=== PATIENT | female | born 1985 | race African-American/Black ===

== ENCOUNTER 2016-12-28 21:52 | Emergency (ER) | payer SELFPAY ==
[2016-12-28] MEDS ORDERED: Ondansetron ODT 4 MG TAB ONE (22:10)
[2016-12-28] MEDS ORDERED: Ibuprofen 800 MG TAB ONE (22:36)
== END 2016-12-28 22:53 | disposition home or self-care (01) ==
LOC: ERS 21:52
DX: J02.9 Acute pharyngitis, unspecified (principal)
CPT/HCPCS: 87081; 87430; 99284; Q0162

== ENCOUNTER 2017-02-14 10:48 | Emergency (ER) | payer SELFPAY ==
[2017-02-14 11:37] LABS: Bilirubin Negative (Negative); Blood, Urine Moderate (Negative); Glucose, Urine (Dipstick) Negative (Negative); Ketone, Urine Negative (Negative); Nitrite Negative (Negative); Protein, Urine (Dipstick) Negative (Neg-Trace)
[2017-02-14 11:40] LABS: Bacteria/HPF None Seen HPF (None Seen); Hyaline Casts/LPF 0-3 HYALINE CAST LPF (0-3 Hyaline); RBC/HPF 21-50 HPF (0-3); Squamous Epithelial 0-3 HPF (0-3); WBC/HPF 0-3 HPF (0-3)
[2017-02-14 11:57] LABS: #Basophils 0.1 thou/uL (0.0-0.2); #Eosinphils 0.1 thou/uL (0.0-0.7); #Monocytes 0.5 thou/uL (0.11-0.59); #Neutrophils 1.7 thou/uL (1.40-6.50); %Basophils 1.9 % (0.0-1.0); %Eosinophils 3.2 % (0.0-10.0); %Lymphocytes 44.8 % (21.0-51.0); %Monocytes 12.2 % (0.0-10.0); Hematocrit 37.8 % (36.0-47.0); Mean Platelet Volume 10.5 fL (7.4-10.4); Red Blood Cell (RBC) Count 5.14 mill/uL (4.20-5.40); White Blood Cell (WBC) Count 4.3 thou/uL (4.8-10.8)
[2017-02-14 12:24] LABS: Hypochromia SLIGHT = 6-15 cells (100X) (0-5/hpf); Microcytosis SLIGHT = 6-15 cells (100X) (0-5/hpf); Ovalocytes SLIGHT = 2-5 cells (100X) (0-1/hpf); Polychromasia SLIGHT = 2-3 cells (100X) (0-2/hpf); Schistocytes SLIGHT = 2-5 cells (100X) (0-1/hpf); Target Cells SLIGHT = 2-5 cells (100X) (0-1/hpf)
== END 2017-02-14 12:32 | disposition home or self-care (01) ==
LOC: ERS 10:48
DX: N94.6 Dysmenorrhea, unspecified (principal)
CPT/HCPCS: 36415; 81003; 81015; 81025; 85025; 99284

== ENCOUNTER 2017-03-25 18:40 | Emergency (ER) | payer SELFPAY ==
[2017-03-25] MEDS ORDERED: Acetaminophen 500 MG TAB ONE (19:08)
== END 2017-03-25 21:41 | disposition home or self-care (01) ==
LOC: ERS 18:40
DX: J10.1 Influenza due to other identified influenza virus with other respiratory manifestations (principal)
CPT/HCPCS: 87804; 99283

== ENCOUNTER 2017-05-17 10:01 | Emergency (ER) | payer SELFPAY ==
[2017-05-17 11:05] LABS: #Basophils 0.1 thou/uL (0.0-0.2); #Lymphocytes 1.7 thou/uL (1.20-3.40); #Monocytes 0.8 thou/uL (0.11-0.59); #Neutrophils 2.8 thou/uL (1.40-6.50); %Basophils 1.2 % (0.0-1.0); %Eosinophils 0.7 % (0.0-10.0); %Lymphocytes 31.2 % (21.0-51.0); %Monocytes 14.5 % (0.0-10.0); %Neutrophils 52.4 % (42.0-75.0); Hemoglobin 10.9 g/dL (12.0-16.0); Mean Corpuscular HGB CONC 31.5 g/dL (32.0-36.0); Mean Corpuscular Hemoglobin 22.2 pg (27.0-31.0); Mean Corpuscular Volume 70.4 fl (81.0-99.0); Mean Platelet Volume 10.3 fL (7.4-10.4); Platelet Count 230 thou/uL (130-400); RBC Distribution Width 13.7 % (11.5-14.5); Red Blood Cell (RBC) Count 4.93 mill/uL (4.20-5.40); White Blood Cell (WBC) Count 5.4 thou/uL (4.8-10.8)
[2017-05-17 11:08] LABS: Bilirubin Negative (Negative); Blood, Urine Negative (Negative); Glucose, Urine (Dipstick) Negative (Negative); Leukocyte Negative (Negative); Nitrite Negative (Negative); Protein, Urine (Dipstick) Negative (Neg-Trace); Specific Gravity, Urine 1.015 (1.005-1.030); Urobilinogen 0.2 mg/dL (0.2-1.0); pH, Urine 6.5 (5.0-9.0)
[2017-05-17 11:09] LABS: Clarity CLEAR (Clear)
[2017-05-17 11:20] LABS: ALT (SGPT) 10 U/L (8-55); AST (SGOT) 14 U/L (5-34); Alkaline Phosphatase 37 U/L (40-150); Anion Gap 9 mmol/L (10-20); BUN (Urea Nitrogen) 10 mg/dL (7.0-18.7); Bilirubin, Total 0.4 mg/dL (0.2-1.2); Calc. Creatinine Clearance 0 mL/min (70-130); Carbon Dioxide 24 mmol/L (22-29); Chloride 105 mmol/L (98-107); Estimated GFR-MDRD Greater than 90; Glucose 81 mg/dL (70-105); Lipase 25 U/L (8-78); Potassium 3.6 mmol/L (3.5-5.1); Sodium 134 mmol/L (136-145)
--- NOTE | 2017-05-17 11:41 | ULT ---
PELVIC ULTRASOUND: DATE: 05/17/17. HISTORY: Pelvic pain. FINDINGS: The uterus measures 8.4 cm x 7.2 cm x 5.9 cm. There is a fluid collection in the endometrial canal w hich contains both a pole and yolk sac with single intrauterine gestation present. Cardiac Dop pler does demonstrate heart tones with a heart rate of 119 b.p.m. While heart rate is lo w, this is likely attributable to very early intrauterine gestational age and small pole. [place] n-lump length measures 0.55 cm, which his consistent with Mean gestational age by ultrasound of 6 wee ks and 2 days. There are 2 hypoechoic areas in a subchorionic location with complicated curvilinear fluid collection measuring 3.1 cm x 0.6 cm and additional hypoechoic area in the subchorionic location measuring 1.7 cm x 1.5 cm. The ovaries demonstrate a normal sonographic appearance for transabdominal imaging with the right ova ry measuring 3 cm x 2.1 cm x 1.9 cm and the left ovary measuring 2.4 cm x 1.4 cm x 1.7 cm. Doppler e valuation of each ovary with spectral analysis and color flow evaluation does demonstrate arterial fl ow. The fallopian tubes are not visualized. A small amount of free fluid is seen in the cul-de-sac. IMPRESSION: 1. Single intrauterine gestation with heart tones documented. heart tones are diminishe d, but this is probably related to the early intrauterine gestational age. There is evidence of subc horionic hemorrhage with 2 separate areas of subchorionic hemorrhage visualized as described above. 2. Gestational age by measurement of the crown-rump length is 6 weeks and 2 days. 3. Small amount of free fluid in the cul-de-sac. 4. Continued short interval followup exam is recommended due to the prominent areas of subarachnoid hemorrhage. MORTGAGE CLOSER consultation may be helpful as well. 5. The above findings were discussed with Dr. Hastings in the emergency department on 05/17/16 at 1124 hours. CODE CR POS: ELLIE
[2017-05-17 11:48] LABS: Hypochromia SLIGHT = 6-15 cells (100X) (0-5/hpf); MDiff Complete? YES; Microcytosis SLIGHT = 6-15 cells (100X) (0-5/hpf)
[2017-05-20 14:35] LABS: Chlamydia by PCR Not Detected (NotDetected); GC by PCR Not Detected (NotDetected)
== END 2017-05-17 11:52 | disposition home or self-care (01) ==
LOC: ERS 10:01
DX: O99.89 Other specified diseases and conditions complicating pregnancy, childbirth and the puerperium (principal); R10.13 Epigastric pain; Z3A.01 Less than 8 weeks gestation of pregnancy
CPT/HCPCS: 36415; 76856; 80053; 81003; 83690; 84702; 85025; 87480; 87491; 87510; 87591; 87660; 93976

== ENCOUNTER 2017-06-01 14:30 | Emergency (ER) | payer OTHER, SELFPAY ==
[2017-06-01 14:58] LABS: Hemoglobin 11.1 g/dL (12.0-16.0); Mean Corpuscular HGB CONC 32.6 g/dL (32.0-36.0); Mean Corpuscular Hemoglobin 22.9 pg (27.0-31.0); Mean Corpuscular Volume 70.2 fl (81.0-99.0); Mean Platelet Volume 10.1 fL (7.4-10.4); Platelet Count 247 thou/uL (130-400); RBC Distribution Width 13.6 % (11.5-14.5); Red Blood Cell (RBC) Count 4.87 mill/uL (4.20-5.40); White Blood Cell (WBC) Count 5.4 thou/uL (4.8-10.8)
[2017-06-01 15:00] LABS: Bilirubin Negative (Negative); Blood, Urine Negative (Negative); Clarity CLEAR (Clear); Glucose, Urine (Dipstick) Negative (Negative); Leukocyte Small (Negative); Nitrite Negative (Negative); Protein, Urine (Dipstick) Negative (Neg-Trace); Specific Gravity, Urine 1.024 (1.002-1.036)
[2017-06-01 15:01] LABS: Bacteria/HPF None Seen HPF (None Seen); Hyaline Casts/LPF 0-3 HYALINE CAST LPF (0-3 Hyaline); Pathc Cast-AUWi Flag 0.27 (0-2.49); RBC/HPF 0-3 HPF (0-3); WBC/HPF 0-3 HPF (0-3)
[2017-06-01 15:02] LABS: Pregnancy Test - Urine (BHCG) POSITIVE (Negative); Pregu Control Background? CLEAR/WHITE (CLR/WHITE); Pregu Control Bar Appear? YES (CONTROL BAR); Specific Gravity 1.024 (1.002-1.036)
[2017-06-01 15:14] LABS: ALT (SGPT) 8 U/L (8-55); AST (SGOT) 16 U/L (5-34); Alkaline Phosphatase 43 U/L (40-150); Anion Gap 9 mmol/L (10-20); BUN (Urea Nitrogen) 10 mg/dL (7.0-18.7); Bilirubin, Total Less than 0.2 mg/dL (0.2-1.2); Calc. Creatinine Clearance 0 mL/min (70-130); Calcium 8.8 mg/dL (7.8-10.44); Carbon Dioxide 24 mmol/L (22-29); Chloride 104 mmol/L (98-107); Estimated GFR-MDRD Greater than 90; Globulin 3.1 g/dL (2.4-3.5); Glucose 75 mg/dL (70-105); Lipase 36 U/L (8-78); Potassium 3.8 mmol/L (3.5-5.1); Protein, Total 7.1 g/dL (6.0-8.3); Sodium 133 mmol/L (136-145)
[2017-06-01 15:22] LABS: Eosinophils 2 % (0-10); Hypochromia SLIGHT = 6-15 cells (100X) (0-5/hpf); Lymphocytes 35 % (21-51); MDiff Complete? YES; Microcytosis MODERATE=15-30 cells (100X) (0-5/hpf); Monocytes 9 % (0-10); Neutrophil 54 % (42-75); Polychromasia SLIGHT = 2-3 cells (100X) (0-2/hpf)
--- NOTE | 2017-06-01 19:19 | ULT ---
TRANSVAGINAL AND PELVIC ULTRASOUND 06/01/17 HISTORY: Pelvic pain. FINDINGS: A single live intrauterine gestation with measurements corresponding to an estimated gestational age of 9 weeks, 2 days and FAB at 01/02/18. The crown-rump length measures 2.19 cm. Gestational sac diameter of 4.13 cm and yolk sac 0.21 cm. The heart rate measures 169 beats per minute. There is a hypoechoic area adjacent to the gestation al sac on the right side suspicious for a subchorionic hemorrhage. The ovaries are not visualized. No free fluid is seen in the cul-de-sac. IMPRESSION: 1. Single live intrauterine gestation of 9 weeks, 2 days estimated gestational age and FAB at . 2. Questionable small amount of subchorionic hemorrhage. POS: [facility]
== END 2017-06-01 16:52 ==
LOC: ERS 14:30
DX: O99.89 Other specified diseases and conditions complicating pregnancy, childbirth and the puerperium (principal); R30.0 Dysuria; R10.9 Unspecified abdominal pain; Z3A.09 9 weeks gestation of pregnancy
CPT/HCPCS: 36415; 76815; 80053; 81003; 81015; 81025; 83690; 85025; 87086

== ENCOUNTER 2017-07-05 07:22 | Emergency (ER) | payer MEDICAID, OTHER, SELFPAY ==
[2017-07-05 08:12] LABS: Bilirubin Negative (Negative); Blood, Urine Negative (Negative); Clarity CLOUDY (Clear); Glucose, Urine (Dipstick) Negative (Negative); Leukocyte Small (Negative); Nitrite Negative (Negative); Protein, Urine (Dipstick) Trace mg/dL (Neg-Trace); Specific Gravity, Urine 1.024 (1.002-1.036)
[2017-07-05 08:15] LABS: Bacteria/HPF None Seen HPF (None Seen); Hyaline Casts/LPF 0-3 HYALINE CAST LPF (0-3 Hyaline); Pathc Cast-AUWi Flag 0.14 (0-2.49); RBC/HPF 0-3 HPF (0-3); Squamous Epithelial 0-3 HPF (0-3); WBC/HPF 0-3 HPF (0-3)
[2017-07-05 08:28] LABS: #Eosinphils 0.1 thou/uL (0.0-0.7); #Lymphocytes 1.2 thou/uL (1.20-3.40); #Monocytes 0.5 thou/uL (0.11-0.59); #Neutrophils 3.6 thou/uL (1.40-6.50); %Basophils 0.6 % (0.0-1.0); %Eosinophils 1.2 % (0.0-10.0); %Lymphocytes 22.5 % (21.0-51.0); %Monocytes 8.8 % (0.0-10.0); Hemoglobin 10.6 g/dL (12.0-16.0); Mean Corpuscular HGB CONC 32.2 g/dL (32.0-36.0); Mean Corpuscular Hemoglobin 22.6 pg (27.0-31.0); Mean Corpuscular Volume 70.2 fl (81.0-99.0); Mean Platelet Volume 10.7 fL (7.4-10.4); Platelet Count 198 thou/uL (130-400); RBC Distribution Width 13.7 % (11.5-14.5); Red Blood Cell (RBC) Count 4.69 mill/uL (4.20-5.40); White Blood Cell (WBC) Count 5.3 thou/uL (4.8-10.8)
[2017-07-05 08:52] LABS: ALT (SGPT) 8 U/L (8-55); AST (SGOT) 14 U/L (5-34); Albumin 3.5 g/dL (3.5-5.0); Alkaline Phosphatase 36 U/L (40-150); Anion Gap 10 mmol/L (10-20); BUN (Urea Nitrogen) 11 mg/dL (7.0-18.7); Bilirubin, Total 0.2 mg/dL (0.2-1.2); Calc. Creatinine Clearance 0 mL/min (70-130); Calcium 8.6 mg/dL (7.8-10.44); Carbon Dioxide 23 mmol/L (22-29); Chloride 107 mmol/L (98-107); Estimated GFR-MDRD Greater than 90; Globulin 2.9 g/dL (2.4-3.5); Glucose 85 mg/dL (70-105); Protein, Total 6.4 g/dL (6.0-8.3); Sodium 136 mmol/L (136-145)
[2017-07-05 09:30] LABS: Lipase 16 U/L (8-78)
--- NOTE | 2017-07-05 11:24 | ULT ---
ULTRASOUND RETROPERITONEUM COMPLETE: (RENAL) DATE: 07-05-17 HISTORY: 31-year-old female in second trimester of gestation presents with right flank pain and right lower quadrant pain. FINDINGS: The right kidney measures 10.5 x 5 x 5.5 cm. The left kidney measures 10 x 6 x 6 cm. Both kidneys h ave normal cortical thickness and normal cortical echogenicity. There is no hydronephrosis. Cursory images of the urinary bladder demonstrate no gross abnormality. Pre void urinary bladder volume 65 m l. Post void urinary bladder volume 35 ml. IMPRESSION: 1. No hydronephrosis. 2. Incomplete bladder voiding. john POS: ELLIE
--- NOTE | 2017-07-05 11:30 | ULT ---
ULTRASOUND OBSTETRICAL COMPLETE: DATE: 07-05-17 HISTORY: 31-year-old female presents with right flank pain and right lower quadrant abdominal pain. FINDINGS: number: Kumar lie: Cephalic Maternal cervix: 3 cm in length, closed Placenta: Anterior. No placenta previa or abruption. Amniotic fluid volume: Subjectively normal heart rate: 153 bpm The following anatomy is visualized, with no evidence of anomalies: Head, four chamber heart, stomach, cord insertion, upper limbs and lower limbs. biometry: Head circumference (HC): 9.7 cm 14 w 3 d Biparietal diameter (BPD): 2.4 cm 14 w 0 d Abdominal circumference (AC): 8.1 cm 14 w 3 d Femur length (FL): 1.2 cm 13 w 3 d Average ultrasound age (AUA): 14 w 0 d Estimated date of delivery (FAB): 01-03-18 Estimated weight (EFW): Not calculated. IMPRESSION: 1. Live early second trimester intrauterine gestation. 2. Estimated gestational age of 14 weeks, 0 days. 3. Vertex lie. 4. No evidence of complications. URIEL Freitas POS: ELLIE
== END 2017-07-05 11:00 | disposition home or self-care (01) ==
LOC: ERS 07:22
DX: O99.89 Other specified diseases and conditions complicating pregnancy, childbirth and the puerperium (principal); R10.31 Right lower quadrant pain; Z3A.15 15 weeks gestation of pregnancy
CPT/HCPCS: 76770; 76815; 80053; 81003; 81015; 83690; 85025

== ENCOUNTER 2017-08-11 15:56 | Day surgery (SDC) | payer OTHER ==
[2017-08-11 16:51] VITALS: BMI 26.7
--- NOTE | 2017-08-12 05:36 | SS ---
OB TRIAGE NOTE DATE OF EVALUATION: 08/11/2017 REGULAR PHYSICIAN: Link Bermeo M.D. EVALUATING PHYSICIAN: Andrew Thomas M.D. CHIEF COMPLAINT: "Vaginal discharge, right-sided pulling." HISTORY OF PRESENT ILLNESS: Ms. Escalera is a 31-year-old black G4, P3-0-0-3 with a reported estimated date of confinement of 01/06/2018 who presents complaining of vaginal discharge at home and occasiona l pulling on her right side. She denies fever, chills, nausea, vomiting, vaginal bleeding or leakage of fluid. She currently is being seen at [facility] and is scheduled to see Dr. Bermeo on 8. PAST OBSTETRICAL HISTORY: Three uncomplicated vaginal deliveries at term. PAST MEDICAL HISTORY: None. PAST SURGICAL HISTORY: None. ALLERGIES: No known allergies. SOCIAL HISTORY: Denies tobacco, alcohol, or drug use. FAMILY HISTORY: Denies pelvic malignancy. PHYSICAL EXAMINATION: VITAL SIGNS: Stable. She is afebrile. ABDOMEN: Soft and nontender. There is no guarding or rebound. Fundal height is one fingerbreadth b elow the umbilicus. On pelvic exam, sterile speculum exam shows the cervix to be long and closed. T here is no vaginal bleeding. There is a copious discharge. heart tones are present. No uteri ne activity is seen on the tocodynamometer. MEDICAL RECORDS MANAGER-3 testing returns consistent with a Gardnerella vaginitis. ASSESSMENT: 1. An 18-week intrauterine . 2. Bacterial vaginosis. PLAN: At this time, the findings have been related to the patient. I have given a prescription for Flagyl 250 mg 1 tablet p.o. t.i.d. for a week. She is instructed to complete the prescription and wa s instructed to follow up with her appointment with Dr. Bermeo next week. Complete postoperative inst ructions were given. She voices understanding of her discharge instructions.
== END 2017-08-11 19:40 | disposition home or self-care (01) ==
LOC: ERS 15:56 → L&D/OP 15:56
PROVIDERS: ATTEND Family Medicine
DX: O23.592 Infection of other part of genital tract in pregnancy, second trimester (principal); N76.0 Acute vaginitis; B96.89 Other specified bacterial agents as the cause of diseases classified elsewhere; Z3A.18 18 weeks gestation of pregnancy
CPT/HCPCS: 87480; 87510; 87660

== ENCOUNTER 2017-10-15 20:42 | Day surgery (SDC) | payer OTHER ==
[2017-10-15 21:25] VITALS: BP 111/68; TEMP 99.1; BMI 29.5
[2017-10-15] MEDS: Metoclopramide HCl 10 MG/2 ML VIAL IVP SCH ×2 (22:02→22:37)
[2017-10-15] MEDS: diphenhydrAMINE 50 MG/ML VIAL IVP SCH ×2 (22:05→23:02)
[2017-10-15] MEDS ORDERED: Lactated Ringer's 1,000 ML IV SCH (22:15)
--- NOTE | 2017-10-16 01:02 | PRG ---
DATE OF SERVICE: 10/15/2017 PRIMARY RETIREMENT MANAGER: Dr. Link Bermeo. CHIEF COMPLAINT: Headache. HISTORY OF PRESENT ILLNESS: The patient is a 31-year-old, female with an intrauterine at 28 weeks and a day, who is presenting with a 2-day history of headache. She reports a history of migraines and this headache feels like she is having another migraine. She has attempted Tylenol at home earlier today without success. Patient denies any other complications with this . She denies fever, illness, fall, chest pain, shortness of breath, nausea, vomiting, diarrhea, or constipation. She denies skin rashes, hip problems, knee problems, muscle weakness, vaginal bleeding, leakage of fluid , urinary urgency. PAST MEDICAL HISTORY: Negative. PAST SURGICAL HISTORY: Negative. ALLERGIES: No known drug allergies. MEDICATIONS: vitamins. SOCIAL HISTORY: Denies drug, alcohol, or tobacco use. OB LABORATORY DATA: Unavailable at the time of dictation. REVIEW OF SYSTEMS: Per HPI. PHYSICAL EXAMINATION: VITAL SIGNS: Blood pressure is 104/52, heart rate is 72, respiratory rate 18, temperature 99.1. GENERAL: Patient appears to be very uncomfortable. She is alert and oriented, cooperative and pleasant to interact with. HEENT: Head: Normocephalic, atraumatic. LUNGS: Clear to auscultation bilaterally. HEART: Regular rate and rhythm. ABDOMEN: Soft, nontender. EXTREMITIES: Nontender, nonedematous. GENITOURINARY: Has been deferred. heart tracing performed and fetus is noted to have a baseline in the 130s to 140s with moderate long-term variability. Fetus has periodic accelerations and had a period of deceleration that came down to the 90s for less than 10 seconds and then recovered in the 120s and then came down again with what appears for a short period of marked variability coming down to the 90s and up to the 140s and then recovering spontaneously and paroxysmal back to the baseline in the 130s to 140s with continued moderate long-term variability, monitoring continued for approximately an hour and a half following this event with no other concerning features. The tocometer is not showing any contractions. During this stay, patient has been given a liter of IV fluids and a regimen of 10 mg of IV Reglan q.30 minutes and Benadryl 25 mg IV q.1 hour for a total of 3 doses of Reglan and 1 dose of Benadryl at which time patient reports that her headache has resolved. ASSESSMENT AND PLAN: The patient is a 31-year-old female with an intrauterine at 28 weeks and what appeared to be a migraine headache resolved with Benadryl and Reglan. Fetus head have a short period of an explainable increased marked variability for a couple of minutes, but since has had a category 1 tracing. We have plans to monitor her for about another 30 minutes for a total of 2 hours post this event and anticipate discharge home. The patient has an appointment with her primary OB, Dr. Bermeo on Monday. MARCELLA
== END 2017-10-15 23:50 | disposition home or self-care (01) ==
LOC: ERS 20:42 → L&D/OP 20:48
PROVIDERS: ATTEND Family Medicine
DX: O99.89 Other specified diseases and conditions complicating pregnancy, childbirth and the puerperium (principal); R51 Headache; Z3A.28 28 weeks gestation of pregnancy
CPT/HCPCS: J1200; J2765

== ENCOUNTER 2017-10-28 05:26 | Day surgery (SDC) | payer OTHER ==
[2017-10-28 05:56] VITALS: BP 108/66; TEMP 98.4; BMI 29.8
[2017-10-28 07:20] LABS: Bilirubin Negative (Negative); Blood, Urine Moderate (Negative); Clarity CLEAR (Clear); Glucose, Urine (Dipstick) Negative (Negative); Leukocyte Moderate (Negative); Nitrite Negative (Negative); Protein, Urine (Dipstick) Negative (Neg-Trace); Specific Gravity, Urine 1.007 (1.002-1.036)
[2017-10-28 07:21] LABS: Bacteria/HPF None Seen HPF (None Seen); Hyaline Casts/LPF 0-3 HYALINE CAST LPF (0-3 Hyaline); Pathc Cast-AUWi Flag 0.14 (0-2.49); RBC/HPF 0-3 HPF (0-3); Squamous Epithelial 0-3 HPF (0-3); WBC/HPF 0-3 HPF (0-3)
--- NOTE | 2017-10-28 08:34 | ER ---
DATE OF ENCOUNTER: 10/28/2017 OB ER ENCOUNTER PRIMARY OB: Dr. Link Bermeo. CHIEF COMPLAINT: Vaginal spotting. HISTORY OF PRESENT ILLNESS: The patient is a 31-year-old G4, P3 female with an intrauterine at 30 weeks and 3 days, who presents today to Labor and Delivery after waking up to get ready for work and noticed that she had some vaginal spotting. The patient also reports that she has been having tightening in her back for the last few days. She is unable to determine how often she feels them, but thinks it happens more than a couple times in an hour. She denies any recent intercourse. She denies fever, fall, headache, chest pain, shortness of breath, cough, nausea, vomiting, diarrhea, constipation. She denies any new rashes. She denies change in her discharge other than the spotting this morning. She denies urinary urgency or frequency outside what she has been experiencing in . She denies hip pain, knee pain, muscle weakness. PAST MEDICAL HISTORY: Negative. PAST SURGICAL HISTORY: Negative. ALLERGIES: No known drug allergies. MEDICATIONS: vitamins. SOCIAL HISTORY: Denies drug, alcohol, or tobacco use. OB LABS: Unavailable at time of dictation. REVIEW OF SYSTEMS: Per HPI. PHYSICAL EXAMINATION: VITAL SIGNS: Blood pressure is 108/66, heart rate of 72, respiratory rate of 18 , temperature 98.4. GENERAL: She appears to be in no acute distress. She is alert and oriented, cooperative and pleasant to interact with. HEAD: Normocephalic, atraumatic. LUNGS: Clear to auscultation bilaterally. HEART: Regular rate and rhythm. ABDOMEN: Soft. She has a little bit of tenderness to the right side with deviation of the uterus to the left. EXTREMITIES: Nontender, nonedematous. She has no SI joint tenderness to palpation or paravertebral tenderness. GENITOURINARY EXAM: Vulva is without masses, lesions, or erythema. There is no bleeding seen at the perineum. With speculum exam, vagina is moist. There is a yellow discharge. Upon visualization of the cervix, there is no bleeding; however, with the cervix rubbing on the end of the speculum, it did start to bleed a small amount. CASE FOLDER-III, GC, chlamydia were collected. Cervical exam is closed and thick and firm with no presentation palpable through the vaginal wall. heart tracing performed. Baseline is noted to be in the 140s with moderate long-term variability, positive 15 x 15 accelerations, no decelerations , the duration has been about 1 hour and no contractions seen on the monitor. CASE FOLDER-III, UA, GC, and chlamydia are all pending at time of dictation. ASSESSMENT AND PLAN: The patient is a 31-year-old female with an intrauterine at 30 weeks and 3 days, presenting with some isolated spotting this morning, when she got up to get ready for work. There is no evidence of labor. The patient does have a yellow discharge vaginally, unsure whether this is just staining from the previous spotting the patient described or if it signs of another infection. Patient is aware that her GC and chlamydia may come back in a couple days. The CASE FOLDER-III and UA should be available later this morning. Pending those results, patient will be given treatment as indicated likely when they become available. Her provider will become Dr. Talamantes of the on-coming OB/ BOIL[facility]. Addendum: VP3 + for BV. script for metronidazole provided. MTDD
--- NOTE | 2017-10-28 08:39 | PDOC.EVN ---
Event Note - Event Note Event Note: Product Development Coordinator note: Assumed care at 0800: Lab check: PRESSURE TANK OPERATOR 3 BV...Fl;agyl for outpatient Patient to follow up GC/Chl result with Jean-Claude Thrasher was closed per report
[2017-10-29 20:00] LABS: Chlamydia by PCR Not Detected (NotDetected); GC by PCR Not Detected (NotDetected)
== END 2017-10-28 08:55 | disposition home or self-care (01) ==
LOC: L&D/OP 05:26
PROVIDERS: ATTEND Family Medicine
DX: O26.853 Spotting complicating pregnancy, third trimester (principal); O99.89 Other specified diseases and conditions complicating pregnancy, childbirth and the puerperium; M54.9 Dorsalgia, unspecified; O23.593 Infection of other part of genital tract in pregnancy, third trimester; B96.89 Other specified bacterial agents as the cause of diseases classified elsewhere; Z3A.30 30 weeks gestation of pregnancy; Z79.899 Other long term (current) drug therapy
CPT/HCPCS: 59025; 81001; 87480; 87491; 87510; 87591; 87660; 99284

== ENCOUNTER 2017-11-15 08:32 | Day surgery (SDC) | payer OTHER ==
[2017-11-15 09:23] VITALS: BP 108/60; TEMP 97.8; BMI 30.7
[2017-11-15 10:17] LABS: Bilirubin Negative (Negative); Blood, Urine Negative (Negative); Clarity CLEAR (Clear); Glucose, Urine (Dipstick) Negative (Negative); Leukocyte Trace (Negative); Nitrite Negative (Negative); Protein, Urine (Dipstick) Negative (Neg-Trace); Specific Gravity, Urine 1.006 (1.002-1.036)
[2017-11-15 10:21] LABS: Bacteria/HPF None Seen HPF (None Seen); Hyaline Casts/LPF 0-3 HYALINE CAST LPF (0-3 Hyaline); RBC/HPF 0-3 HPF (0-3); Squamous Epithelial 0-3 HPF (0-3); WBC/HPF 0-3 HPF (0-3)
--- NOTE | 2017-11-15 12:19 | PRG ---
DATE OF SERVICE: 11/15/2017 OB ER ENCOUNTER PRIMARY OB: Dr. Doss at [facility]. CHIEF COMPLAINT: Pelvic and rectal pressure. HISTORY OF PRESENT ILLNESS: The patient is a 32-year-old G4, P3 female with an intrauterine pregnanc y at 32 weeks and 4 days, who presents to Labor and Delivery with a 2-day history of vaginal pressure that she feels rectally sometimes. The patient was just worried for her baby and came for evaluatio n. The patient has 3 children at home, school age and works. She denies any intercourse in the last several days. She denies urinary urgency or frequency. She does report she recently was diagnosed with bacterial vaginosis about 3 weeks ago and had completed her antibiotics. The patient has a hist ory of 1 delivery at about a month early from her due date. She denies any other complicatio ns with this . The patient denies any recent illness, fever, fall, headache, chest pain, sh ortness of breath, nausea, vomiting, diarrhea, constipation, hip problems, knee problems, muscle weak ness, vaginal bleeding, leakage of fluid or change in discharge, urinary urgency or frequency. PAST MEDICAL HISTORY: Negative. PAST SURGICAL HISTORY: Negative. ALLERGIES: No known drug allergies. MEDICATIONS: vitamins. SOCIAL HISTORY: Denies drug, alcohol or tobacco use. OB LABS: Unavailable at the time of dictation. REVIEW OF SYSTEMS: Per HPI. PHYSICAL EXAMINATION: VITAL SIGNS: Blood pressure 108/60, heart rate of 78, respiratory rate of 16, temperature 98.8. GENERAL: She appears to be in no acute distress. She is alert and oriented, cooperative and pleasan t to interact with. HEENT: Normocephalic, atraumatic. CHEST: Clear to auscultation bilaterally. HEART: Regular rate and rhythm. ABDOMEN: Soft, gravid, nontender. EXTREMITIES: Nontender and nonedematous. PELVIC: Vulva is without masses, lesions or erythema. Vagina is moist. Cervix is visibly closed. There is minimal discharge in the vaginal vault. On digital exam, cervix is closed. There is what f eels like a head presenting through the vaginal wall. heart tracing performed for vaginal and rectal pressure. Baseline is noted to be in the 130s w ith moderate long-term variability, positive 15 x 15 accelerations, no decelerations. No contraction s seen on the tocometer. VP3 is negative for Trichomonas, positive for bacterial vaginosis or Gardnerella and negative for [place] dida. Urinalysis is negative for nitrites, glucose, blood, bacteria, white blood cells, red blood cells. S he has trace leukocyte esterase. ASSESSMENT AND PLAN: The patient is a 32-year-old G4, P3 female presenting with pelvic pressure and rectal pressure. There is no evidence of labor at this time. She does have recurrent bacterial vagi nosis, which we have given a prescription for metronidazole 500 mg b.i.d. number 14 and also I have e ncouraged an elrz-fuk-[id number] probiotic, specifically designed for reapproximating the vaginal canal. I have encouraged her to start this as soon as she stops her antibiotics and to continue until her . Fetus has a category 1 tracing. The patient has followup with her primary OB, Dr. Doss tomorrow.
== END 2017-11-15 11:27 | disposition home health service, planned readmission (86) ==
LOC: L&D/OP 08:32
PROVIDERS: ATTEND Obstetrics & Gynecology
DX: O99.89 Other specified diseases and conditions complicating pregnancy, childbirth and the puerperium (principal); R10.2 Pelvic and perineal pain; Z3A.32 32 weeks gestation of pregnancy
CPT/HCPCS: 81001; 87480; 87510; 87660; 99284

== ENCOUNTER 2017-12-13 19:17 | Day surgery (SDC) | payer OTHER ==
[2017-12-13 19:51] VITALS: BP 108/67; TEMP 98.9; BMI 30.9
--- NOTE | 2017-12-13 20:45 | HP ---
TIME OF EVALUATION: 20:10 Location: Labor and Delivery triage, B. REASON FOR EVALUATION: Pelvic pressure at 36 weeks' gestation. This is a patient of Dr. Doss. In brief, this patient has a full handwritten H&P in the physical chart and this dictation is to supp lement. HISTORY OF PRESENT ILLNESS: This is a 32-year-old -Israeli G4, P3 with a history of 3 prior vaginal deliveries with the last one being on 06/07/2012. She is here for pelvic pressure and vagina l pressure, but no leakage of fluid, no vaginal bleeding and no contractions. She has good mov ement. She has increased perirectal pressure as well, but no rectal bleeding and she has had recent constipation, but it is now relieved. She denies any other issues. REVIEW OF SYSTEMS: Complete review of systems was checked and is otherwise negative as unless specif ied in the HPI. PAST MEDICAL HISTORY: She has a history of migraines, but does not require medications. PAST SURGICAL HISTORY: None. ALLERGIES: None. OB HISTORY: She has had 3 prior vaginal births. PHYSICAL EXAMINATION: VITAL SIGNS: Blood pressure 108/67, pulse is 78 and O2 sat is 99%. GENERAL: She is in no acute distress. GENITOURINARY: Uterus is soft and nontender. I performed an external vaginal/vulvar examination and I found two small external pedunculated condyloma each one about 0.5 cm; one is at 7 o'clock and one is at 4 o'clock position. I explained this to the patient's and patient was given detailed informat ion on likely HPV origin. Also performed a perirectal examination without doing a digital rectal exa m. This was by visualization alone. I see a small external less than 1 cm external hemorrhoid that is nontender to palpation. With clean gloves, I checked her cervix and cervix is fingertip/20 percen t effaced/ -2 station/cephalic by Ventura's maneuver/no evidence of rupture. On monitor, heart tones are in the 140s-150s with no contractions on tocodynamometer. ASSESSMENT: 1. This is a 36-week with likely discomforts of in a multigravida. There is no evidence of labor. She also has a chest tube incidentally noted small condyloma at the exter nal vaginal area; one is at 7 o'clock and one is at 4 o'clock. 2. heart tones are reactive. PLAN: 1. No evidence of . 2. I provided detailed information on likely condyloma and gave her information that these may likel y resolve and if not, they can be removed in the office or destroyed with medical therapy. 3. I gave her information that this is not an indication for as they are very small and di d not obstruct labor. 4. No acute needs at this time.
== END 2017-12-13 20:30 | disposition home health service (06) ==
LOC: L&D/OP 19:17
PROVIDERS: ATTEND Obstetrics & Gynecology
DX: O99.89 Other specified diseases and conditions complicating pregnancy, childbirth and the puerperium (principal); R10.2 Pelvic and perineal pain; Z3A.36 36 weeks gestation of pregnancy
CPT/HCPCS: 99282

== ENCOUNTER 2017-12-22 00:26 | Day surgery (SDC) | payer OTHER ==
[2017-12-22 01:15] VITALS: BP 128/66; TEMP 98.9; BMI 31.4
--- NOTE | 2017-12-22 05:01 | PRG ---
OB ER ENCOUNTER DATE OF SERVICE: 12/22/2017 PRIMARY CAR CHANGER: Dr. Doss at [facility]. CHIEF COMPLAINT: Abdominal pains. HISTORY OF PRESENT ILLNESS: The patient is a 32-year-old female with intrauterine at 37 weeks who is presenting today with a 1 day history of abdominal pains. The patient reports contr actions about frequently about every 5-6 minutes that has been going on since last night. The patien t denies vaginal bleeding or leakage of fluid. Denies any recent illness, fever, fall, headache, jonathon st pain, shortness of breath. She denies nausea, vomiting, diarrhea, constipation. Denies rash. Sh e does report lower back pains. PAST MEDICAL HISTORY: Anemia and migraine headaches. PAST SURGICAL HISTORY: Negative. OB HISTORY: The patient had 3 term vaginal deliveries. ALLERGIES: No known drug allergies. MEDICATIONS: vitamins. SOCIAL HISTORY: Denies drug, alcohol or tobacco use. OB LABS: Blood type is O positive, antibody screen is negative. RPR is nonreactive in the first tri mester. HIV is nonreactive in first trimester. Hepatitis B surface antigen is negative. She is rub rené immune. One hour Glucola is 84. GC and chlamydia are negative. REVIEW OF SYSTEMS: Per HPI. PHYSICAL EXAMINATION: VITAL SIGNS: Blood pressure 128/66, heart rate of 83, respiratory rate of 20, satting 99% on room ai r, temperature 98.8. GENERAL: She appears to be in no acute distress. She is alert and oriented, cooperative and pleasan t to interact with. HEENT: Normocephalic, atraumatic. LUNGS: Clear to auscultation bilaterally. HEART: Regular rate and rhythm. ABDOMEN: Soft, gravid, nontender. EXTREMITIES: Nontender and nonedematous. GENITOURINARY: Per nursing staff is 1, 20% effaced, and -2 station, unchanged after 2 hours of obser vation. heart tracing performed for abdominal pain in . Baseline is noted to be in the 120s w ith moderate long-term variability, positive 15 x 15 accelerations, no decelerations. Tocometer show s contractions every 2-4 minutes, though not intense. ASSESSMENT AND PLAN: The patient is a 32-year-old female with an intrauterine at 37 weeks and 6 days, having term contractions and possible latent labor. The patient's cervix is very u nfavorable at this time. Fetus is reactive with a category 1 tracing. The patient has been discharg ed to home with instructions to follow up with Dr. Doss tomorrow in her office. The patient will b e making a phone call to try to get seen later in the day. She has been given term labor precautions and instructions to return as necessary.
== END 2017-12-22 03:10 | disposition home or self-care (01) ==
LOC: L&D/OP 00:26
PROVIDERS: ATTEND Obstetrics & Gynecology
DX: O47.1 False labor at or after 37 completed weeks of gestation (principal); Z3A.37 37 weeks gestation of pregnancy
CPT/HCPCS: 99283

== ENCOUNTER 2017-12-31 16:04 | Day surgery (SDC) | payer OTHER ==
[2017-12-31 17:01] VITALS: BMI 31.1
--- NOTE | 2017-12-31 17:12 | PDOC.FPROB ---
FMR OB H&P: HPI - History of Present Illness Chief Complaint: Contractions Indentification: 32 year old History of Present Illness: 32 year old at 39.1 wks presents with contractions. She states she was at a birthday libertarian earlier today with her kids when she noted two contractions on two separate occasions. The contractions have since resolved. She also endorses vaginal spotting on three separate occasions described as quarter size drops of bright red blood noted when using the restroom. Patient denies any symptoms currently. She has used the restroom since arriving to L&D and did not note any vaginal bleeding. Patient denies LoF, headache, vision changes, edema, or abdominal pain. Patient states she had BV two weeks ago and was treated with antibiotics. She finished the course of antibiotics last monday and the thin white/clear vaginal discharge she was experiencing resolved. As of this past Monday, her discharge started again. She denies any vaginal itching, discomfort , dysuria. Primary Care Physician: Selam FMR OB H&P: Current - Care : 4 Para: [id number] Gestational age: 39.1 wks Due date: 01/06/2018 - OB Labs Blood type: O RH: positive Antibody Screen: negative HIV: negative RPR: negative HepBsAg: negative Rubella: immune Gonorrhea: negative Chlamydia: negative 1 hour gtt: 84 GBS: unknown FMR OB H&P: History - Past Medical History PMH: Migraine headaches - OB History OB History: x3 - Social History Social History: Denies alcohol, tobacco, or drug use. - Family History Family History: Mother with sickle cell trait FMR OB H&P: Medications - Current Home Medications: Medication Instructions Recorded Confirmed Type Cqc457/Iron Fum/Folic/Docusate 1 tablet PO DAILY 08/11/17 12/22/17 History [ 19] Allergies/Adverse Reactions: Allergies Allergy/AdvReac Type Severity Reaction Status Date / Time No Known Allergies Allergy Verified 11/15/17 09:23 FMR OB H&P: ROS - Review of Systems General: denies: fever/chills, weight/appetite/sleep changes Eyes: denies: vision changes, scotomas ENT: denies: nasal congestion, rhinorrhea, sore throat Cardiovascular: denies: chest pain, palpitation Gastrointestinal: denies: abdominal pain, nausea, vomiting, diarrhea Genitourinary (Female): reports: polyuria, vaginal discharge, vaginal bleeding, contractions. denies: dysuria, vaginal pain, vaginal pressure Musculoskeletal: denies: pain Neurologic: denies: seizures, weakness Integumentary: denies: rash, lesions Hematologic/Lymphatic: denies: prolonged or excessive bleeding Psychological: denies: depression, anxiety FMR OB H&P: Vital Signs - Maternal Vital signs: BP 103/56 Pulse 63 - Heart Tones Baseline: 150 Variability: moderate Acceleration: present (Not >2, will reposition and provide patient with food to see where her baseline settles in at) Deceleration: absent Category: category 1 [place] contractions every: 1 within the last 45 min FMR OB H&P: Physical Exam - Physical Exam General: NAD HEENT: MMM, grossly normal vision, grossly normal hearing Neck: supple Heart: pulses present General: no respiratory distress Abdomen: soft, gravid, non-tender Musculoskeletal: pulses present Neurological: no focal deficit Skin: no rash, capillary refill <2 seconds Lymphatic: no unusual bruising or bleeding Psychiatric: intact recent and remote memory, good judgement and insight, normal mood and affect - Pelvic Exam Vulva: no masses, no lesions, no discharge, no blood Cervix: no masses, no lesions SVE: 17:45 by Marina , posterior Membranes: Anterior and fundal confirmed by bedside ultrasound Presentation: Vertex confirmed by bedside ultrasound FMR OB H&P: A/P - Problem List (1) Term Current Visit: Yes Status: Acute Code(s): Z34.80 - ENCOUNTER FOR SUPRVSN OF NORMAL , UNSP TRIMESTER Assessment and Plan: 32 year old at 39.1 wks sIUP, rule out labor - [place] showed 1 contraction in 45 minutes - Patient asymptomatic - Vaginal spotting consistent with changes that occur at term; may also be related to recurrent BV. Patient recently received treatment. Denied recent vaginal intercourse - NST showed reactive strip - Bedside ultrasound performed which showed vertex positioning and anterior fundal placenta - Follow up with OB as scheduled - Cervical exam , posterior, medium; unchanged from last check in clinic per patient - Labor precautions provided - D/C patient once verify strip reactive; meal, position changes, etc Disposition: Stable. Discharge home with labor precautions. Discussion: Date/Time: 12/31/17 170 This H&P was discussed with Dr. Arreguin who agrees with the above documentation and plan. Signature: Maryjane Gray, PGY-2
== END 2017-12-31 19:55 | disposition home or self-care (01) ==
LOC: L&D/OP 16:04
PROVIDERS: ATTEND Obstetrics & Gynecology
DX: O47.1 False labor at or after 37 completed weeks of gestation (principal); O99.89 Other specified diseases and conditions complicating pregnancy, childbirth and the puerperium; N89.8 Other specified noninflammatory disorders of vagina; Z3A.39 39 weeks gestation of pregnancy
CPT/HCPCS: 76815; 99282

== ENCOUNTER 2018-01-02 05:30 | Inpatient (IN) | payer OTHER ==
[2018-01-05] MEDS ORDERED: Acetaminophen 500 MG TAB PO PRN (06:35)
[2018-01-05] MEDS ORDERED: Promethazine HCl 25 MG/ML VIAL IM PRN ×2 (06:35→09:43)
[2018-01-05] MEDS ORDERED: Ibuprofen 800 MG TAB PO PRN (06:35)
[2018-01-05] MEDS ORDERED: Diphenoxylate HCl/Atropine Tablet PO PRN (06:35)
[2018-01-05] MEDS ORDERED: HYDROcodone/Acetaminophen 5/325 mg Tablet PO PRN ×3 (06:35→18:19)
[2018-01-05] MEDS ORDERED: Carboprost 250 MCG/ML AMP IM PRN (06:35)
[2018-01-05] MEDS ORDERED: Methylergonovine 0.2 MG/ML VIAL IM PRN (06:35)
[2018-01-05] MEDS ORDERED: Ondansetron PF 4 MG/2 ML Vial IVP PRN ×3 (06:35→18:19)
[2018-01-05] MEDS ORDERED: NS w/ Oxytocin 10 units 500 ML IV SCH (06:35)
[2018-01-05] MEDS ORDERED: Butorphanol Tartrate 1 MG/ML VIAL SLOW IVP PRN (06:35)
[2018-01-05] MEDS ORDERED: Lidocaine 1% (PF) 30 ML VIAL SC PRN (06:35)
[2018-01-05] MEDS ORDERED: Misoprostol 200 MCG TAB PR PRN (06:35)
[2018-01-05 06:53] VITALS: BMI 31.4
[2018-01-05] MEDS: Lactated Ringer's 1,000 ML IV SCH ×2 (07:30→10:01)
[2018-01-05 07:48] LABS: Hemoglobin 11.4 g/dL (12.0-16.0); Mean Corpuscular HGB CONC 32.1 g/dL (32.0-36.0); Mean Corpuscular Hemoglobin 22.7 pg (27.0-31.0); Mean Corpuscular Volume 70.5 fL (78.0-98.0); Mean Platelet Volume 11.4 fL (7.4-10.4); Platelet Count 198 thou/uL (130-400); RBC Distribution Width 14.2 % (11.5-14.5); Red Blood Cell (RBC) Count 5.03 mill/uL (4.20-5.40); White Blood Cell (WBC) Count 8.7 thou/uL (4.8-10.8)
--- NOTE | 2018-01-05 08:02 | PDOC.LDHP ---
Labor and Delivery H&P Chief complaint: scheduled induction HPI: 32yo at 40w1d by LMP for elective IOL Current gestational age (weeks): 40 Due date: 01/04/18 Dating criteria: last menstrual period Grav: 4 Para: 3 Current complications: none Abnormal US findings: No Current medications: pre- vitamins Previous surgical history: none Allergies/Adverse Reactions: Allergies Allergy/AdvReac Type Severity Reaction Status Date / Time No Known Allergies Allergy Verified 01/05/18 06:48 Social history: none - Physical Exam Vital signs reviewed and normal: yes General: NAD Heart: RRR Lungs: CTAB Abdomen: gravid Extremeties: no edema FHT: category 1 - OB Labs RH: positive Antibody Screen: negative HIV: negative RPR: negative HEPSAg: negative 1 hour GCT: negative GBS: negative Urine drug screen: negative Rubella: immune - Assessment L&D Assessment: elective induction at term - Plan Plan: admit to L&D, labor augmentation if indicated, informed consent obtained, anesthesia consult for pain management
[2018-01-05 08:23] LABS: HBSAg Index 0.18 S/CO (0-0.99); Hep B Surf Ag Non-Reactive S/CO (NonReactive)
[2018-01-05 08:28] LABS: Syphilis Antibody Nonreactive (Nonreactive); Syphilis Antibody Index 0.05 S/CO (<1.00 Non-Reactive)
[2018-01-05] MEDS ORDERED: Fentanyl 4 mcg/Bup 0.1% Cadd 100 ML ONE (09:00)
[2018-01-05] MEDS ORDERED: Naloxone HCl 0.4 mg/ml Vial IVP PRN ×2 (09:43)
[2018-01-05] MEDS ORDERED: diphenhydrAMINE 50 MG/ML VIAL IVP PRN (09:43)
[2018-01-05] MEDS ORDERED: Eucerin (Mineral Oil/Petrolatum,White) 30 gm Jar TOP PRN (09:43)
[2018-01-05] MEDS ORDERED: ePHEDrine/0.9% NaCl/PF SYRINGE 50 mg/10 ml SLOW IVP PRN (09:43)
[2018-01-05] MEDS ORDERED: Acetaminophen 325 MG TAB PO PRN (09:43)
[2018-01-05] MEDS ORDERED: Lactated Ringer's 500 ML IV PRN (09:43)
[2018-01-05] MEDS ORDERED: Communication Order-Pharmacy FS SCH (09:45)
[2018-01-05] MEDS ORDERED: Fentanyl 4 mcg/Bupivacaine 0.1% Cassette 100 ML EPIDURAL SCH (09:45)
[2018-01-05] MEDS ORDERED: metroNIDAZOLE 500 MG in Premix Bag 1 BAG IVPB SCH (12:00)
[2018-01-05] MEDS: NS / Oxytocin 40 units/1000ml 1,000 ML IV PRN ×2 (16:20→17:26)
--- NOTE | 2018-01-05 16:31 | PDOC.OPDEL ---
OB Operative/Delivery Note Delivery Dr/Surgeon: Camryn Assist: n/a Pre-Delivery Diagnosis: elective induction Procedure/Post Delivery Dx: spontaneous vaginal delivery Weeks gestation: 39 Anesthesia: epidural - Findings A Sex: male - 1 min: 8 - 5 min: 9 - Additional Findings/Plan Placenta delivered: spontaneous Repaired Obstetrical Laceration: none Estimated blood loss: 200cc qbl pending Compilations/Other Findings: body cord x 1 tight, terminal bradycardia Post delivery plan: routine recovery
[2018-01-05 16:43] LABS: Actual Bicarbonate (HCO3a) 23.6 mEq/L (22-28); Base Excess (BEa) -3.3 mEq/L (-2.0 to +3.0); CO2 Tension 49.8 mmHg (35.0-45.0); Calcium, Ionized 1.42 mmol/L (1.12-1.30); Carboxyhemoglobin (COHb) 1.5 gm% (0.0-3.0); Hemoglobin (Hb) 13.2 g/dL (12.0-16.0); Potassium - ABG Lab 5.42 mmol/L (3.70-5.30); pH, Arterial 7.29 (7.35-7.45)
[2018-01-05 16:45] LABS: O2 Tension (PaO2) 30.7 mmHg (80.0-100.0)
[2018-01-05] MEDS ORDERED: Benzocaine/Menthol 20-0.5% 60 ML CAN TOP PRN (18:19)
[2018-01-05] MEDS ORDERED: Preparation H Ointment 28 GM TUBE PR PRN (18:19)
[2018-01-05] MEDS ORDERED: Adacel (T-DAP) 0.5 ML VIAL IM ONE (18:19)
[2018-01-05] MEDS ORDERED: diphenhydrAMINE 25 MG CAP PO PRN (18:19)
[2018-01-05] MEDS ORDERED: Milk Of Magnesia 30 ML UDCUP PO PRN (18:19)
[2018-01-05] MEDS ORDERED: NS / Oxytocin 40 units/1000ml 1,000 ML IV SCH (18:19)
[2018-01-05] MEDS ORDERED: Lanolin Ointment 7 GM TUBE TOP PRN (18:19)
[2018-01-05] MEDS ORDERED: Bisacodyl 10 MG SUPP PR PRN (18:19)
[2018-01-05] MEDS: Docusate Calcium (SURFAK) 240 MG CAP PO SCH (21:15)
[2018-01-06] MEDS: Ibuprofen 800 MG TAB PO SCH ×4 (04:07→21:26)
[2018-01-06] MEDS: Ferrous Sulfate 325 MG TAB PO SCH ×2 (07:44→15:35)
[2018-01-06] MEDS: Docusate Calcium (SURFAK) 240 MG CAP PO SCH ×2 (09:13→21:26)
[2018-01-06] MEDS: Prenatal Vitamin 1 TAB PO SCH (09:13)
--- NOTE | 2018-01-06 09:14 | PDOC.PP ---
Post Progress Note Post Day #: 1 Subjective: Feels well, would like to stay until baby is ready for discharge tomorrow as they are checking for bili levels. PO intake tolerated: yes Flatus: yes Ambulation: yes Vital Signs (12 hours) Temp Pulse Resp BP Pulse Ox 01/06/18 07:36 97.9 F 60 20 111/56 L 99 01/06/18 04:00 98.1 F 58 L 16 118/57 L 01/06/18 00:00 97.7 F 61 16 107/57 L Weight Weight 195 lb - Physical Examination Abdominal: lochia, no distention Psychiatric: A&Ox3, normal affect Result Diagrams: 01/05/18 06:39 Additional Labs: Post Labs Blood Type O POSITIVE 01/05/18 06:39 Hep Bs Antigen Non-Reactive S/CO (NonReactive) 01/05/18 06:39 (1) Vaginal delivery Code(s): O80 - ENCOUNTER FOR FULL-TERM UNCOMPLICATED DELIVERY Status: Acute (2) Normal course Code(s): Z39.2 - ENCOUNTER FOR ROUTINE FOLLOW-UP Status: Acute - Assessment/Plan Plan: 1. Doing well, with no evidence of metritis, or PP complications 2. Continue observation and likely discharge tomorrow 3. Motrin for discharge med.
[2018-01-07] MEDS: Ibuprofen 800 MG TAB PO SCH (05:50)
--- NOTE | 2018-01-07 06:26 | PDOC.PP ---
Post Progress Note Post Day #: 2 Subjective: Patient doing well overall. No significant overnight events. Patient tolerating PO and ambulating without difficulty. PO intake tolerated: yes Flatus: yes Ambulation: yes Vital Signs (12 hours) Temp Pulse Resp BP 01/06/18 20:00 98.3 F 66 16 109/64 Weight Weight 88.451 kg - Physical Examination General: NAD Cardiovascular: RRR Respiratory: non-labored breathing Abdominal: + bowel sounds, lochia (minimal), no distention, appropriately TTP Skin: no rash Neurological: no gross focal deficits Psychiatric: A&Ox3, normal affect Result Diagrams: 01/05/18 06:39 Additional Labs: Post Labs Blood Type O POSITIVE 01/05/18 06:39 Hep Bs Antigen Non-Reactive S/CO (NonReactive) 01/05/18 06:39 (1) Term delivered Code(s): O80 - ENCOUNTER FOR FULL-TERM UNCOMPLICATED DELIVERY Status: Acute Comment: 32yo at 40.1 wks by LMP delivered TAGA M at 16:14 on 2017 - Routine PP care - Plan to d/c home on ibuprofen - Follow up in 6 weeks at [facility] - D/C home today <Maryjane Gray - Last Filed: 01/07/18 06:30> Vital Signs (12 hours) Temp Pulse Resp BP 01/06/18 20:00 98.3 F 66 16 109/64 Weight Weight 195 lb Result Diagrams: 01/05/18 06:39 Additional Labs: Post Labs Blood Type O POSITIVE 01/05/18 06:39 Hep Bs Antigen Non-Reactive S/CO (NonReactive) 01/05/18 06:39 (1) Vaginal delivery Code(s): O80 - ENCOUNTER FOR FULL-TERM UNCOMPLICATED DELIVERY Status: Acute (2) Normal course Code(s): Z39.2 - ENCOUNTER FOR ROUTINE FOLLOW-UP Status: Acute - Assessment/Plan Faculty: Patient seen at bedside. OK for [place] home. Discharge note in physical chart, and discharge summary form completed <Easton Talamantes - Last Filed: 01/07/18 07:04>
[2018-01-07] MEDS: Ferrous Sulfate 325 MG TAB PO SCH (07:38)
[2018-01-07 08:35] VITALS: BP 131/83; TEMP 97.8
[2018-01-07] MEDS: Prenatal Vitamin 1 TAB PO SCH (09:29)
[2018-01-07] MEDS: Docusate Calcium (SURFAK) 240 MG CAP PO SCH (09:29)
== END 2018-01-07 11:20 | disposition home or self-care (01) | DRG 807 ==
LOC: L&D 01-05 06:23 → 3SW 01-05 18:07
PROVIDERS: ADMIT Student in an Organized Health Care Education/Training Program; ATTEND Student in an Organized Health Care Education/Training Program
PROC: 10E0XZZ Delivery of Products of Conception, External Approach (ICD-10-PCS; principal; 2018-01-05)
PROC: 3E033VJ Introduction of Other Hormone into Peripheral Vein, Percutaneous Approach (ICD-10-PCS; 2018-01-05)
PROC: 10907ZC Drainage of Amniotic Fluid, Therapeutic from Products of Conception, Via Natural or Artificial Opening (ICD-10-PCS; 2018-01-05)
DX: O69.89X0 Labor and delivery complicated by other cord complications, not applicable or unspecified (principal); Z37.0 Single live birth; Z3A.40 40 weeks gestation of pregnancy; O76 Abnormality in fetal heart rate and rhythm complicating labor and delivery
CPT/HCPCS: 36416; 51702; 82805; 85027; 86780; 86850; 86900; 86901; 87340; J2001; J2405

== ENCOUNTER 2018-06-07 18:00 | Emergency (ER) | payer OTHER ==
[2018-06-07 18:38] LABS: Hemoglobin 12.4 g/dL (12.0-16.0); Mean Corpuscular HGB CONC 30.6 g/dL (32.0-36.0); Mean Platelet Volume 10.7 fL (7.4-10.4); Platelet Count 242 thou/uL (130-400); RBC Distribution Width 13.4 % (11.5-14.5); Red Blood Cell (RBC) Count 5.62 mill/uL (4.20-5.40); White Blood Cell (WBC) Count 6.2 thou/uL (4.8-10.8)
[2018-06-07 18:57] LABS: Mean Corpuscular Volume 71.8 fL (78.0-98.0)
[2018-06-07 19:05] LABS: #Basophils 0.1 thou/uL (0.0-0.2); #Eosinphils 0.1 thou/uL (0.0-0.7); #Lymphocytes 2.9 thou/uL (1.20-3.40); #Monocytes 0.6 thou/uL (0.11-0.59); #Neutrophils 2.5 thou/uL (1.40-6.50); %Basophils 1.6 % (0.0-1.0); %Eosinophils 2.3 % (0.0-10.0); %Lymphocytes 46.4 % (21.0-51.0); %Monocytes 9.5 % (0.0-10.0); %Neutrophils 40.2 % (42.0-75.0); Anisocytosis SLIGHT = 6-15 cells (100X) (0-5/hpf); MDiff Complete? YES; Microcytosis SLIGHT = 6-15 cells (100X) (0-5/hpf)
[2018-06-07 19:18] LABS: BHCG - Serum Negative (NEGATIVE); Pregs Control Background? CLEAR/WHITE (CLR/WHITE); Pregs Control Bar Appear? YES (CONTROL BAR)
[2018-06-07] MEDS ORDERED: Metoclopramide HCl 10 MG/2 ML VIAL ONE (20:17)
[2018-06-07] MEDS ORDERED: Ketorolac Tromethamine 30 MG/ML VIAL ONE (20:17)
== END 2018-06-07 21:31 | disposition home or self-care (01) ==
LOC: ERS 18:00
DX: R51 Headache (principal)
CPT/HCPCS: 36415; 84703; 85025; 86850; 86900; 86901; 96365; 96375; J1885; J2765

== ENCOUNTER 2018-08-05 08:30 | Emergency (ER) | payer MEDICAID ==
[2018-08-05] MEDS ORDERED: Acetaminophen 500 MG TAB ONE (09:09)
[2018-08-05 09:37] LABS: Hemoglobin 12.7 g/dL (12.0-16.0); Mean Corpuscular Hemoglobin 22.3 pg (27.0-31.0); Mean Corpuscular Volume 71.9 fL (78.0-98.0); Mean Platelet Volume 11.4 fL (7.4-10.4); Platelet Count 226 thou/uL (130-400); RBC Distribution Width 13.4 % (11.5-14.5); White Blood Cell (WBC) Count 12.2 thou/uL (4.8-10.8)
[2018-08-05 09:44] LABS: Bilirubin Negative (Negative); Blood, Urine Negative (Negative); Clarity CLEAR (Clear); Glucose, Urine (Dipstick) Negative (Negative); Leukocyte Negative (Negative); Nitrite Negative (Negative); Protein, Urine (Dipstick) Negative (Neg-Trace); Specific Gravity, Urine 1.021 (1.002-1.036); pH, Urine 6.5 (5.0-9.0)
[2018-08-05 09:53] LABS: ALT (SGPT) 23 U/L (8-55); AST (SGOT) 26 U/L (5-34); Albumin 4.5 g/dL (3.5-5.0); Alkaline Phosphatase 59 U/L (40-150); Anion Gap 14 mmol/L (10-20); BUN (Urea Nitrogen) 9 mg/dL (7.0-18.7); Bilirubin, Total 0.4 mg/dL (0.2-1.2); Calc. Creatinine Clearance 0 mL/min (70-130); Calcium 9.3 mg/dL (7.8-10.44); Carbon Dioxide 24 mmol/L (22-29); Chloride 102 mmol/L (98-107); Estimated GFR-MDRD 84; Globulin 3.4 g/dL (2.4-3.5); Glucose 105 mg/dL (70-105); Lipase 27 U/L (8-78); Potassium 3.8 mmol/L (3.5-5.1); Protein, Total 7.9 g/dL (6.0-8.3); Sodium 136 mmol/L (136-145)
[2018-08-05 10:01] LABS: #Lymphocytes 1.2 thou/uL (1.20-3.40); #Monocytes 0.7 thou/uL (0.11-0.59); #Neutrophils 10.2 thou/uL (1.40-6.50); %Basophils 0.3 % (0.0-1.0); %Eosinophils 0.1 % (0.0-10.0); %Lymphocytes 10.1 % (21.0-51.0); %Monocytes 5.8 % (0.0-10.0); %Neutrophils 83.7 % (42.0-75.0); Hypochromia MODERATE=16-30 cells (100X) (0-5/hpf); Large Platelets SLIGHT; MDiff Complete? YES; Microcytosis MODERATE=15-30 cells (100X) (0-5/hpf); Platelet Morphology Comment Appears Adequate
[2018-08-05 10:03] LABS: Pregnancy Test - Urine (BHCG) Negative (Negative); Pregu Control Background? CLEAR/WHITE (CLR/WHITE); Pregu Control Bar Appear? YES (CONTROL BAR); Specific Gravity 1.021 (1.002-1.036)
--- NOTE | 2018-08-05 10:37 | CT ---
CT abdomen and pelvis with IV contrast. Oral contrast was not administered. INDICATIONS: Abdominal pain COMPARISON: 01/26/2016 FINDINGS: Lung bases are clear Liver, spleen, and pancreas appear unremarkable. Stomach and duodenum appear unremarkable. Adrenal glands appear normal. Kidneys appear unremarkable. Collecting structures and urinary bladder appear unremarkable. There are fluid-filled mildly distended loops of small bowel which has a nonspecific pattern. No evid ence of small bowel obstruction. Appendix is not definitely identified. Colon is redundant. Large amount of stool is seen in the transverse colon and upper mid left colon. F indings suggest chronic constipation. Rectum and sigmoid however is decompressed. Aorta is normal caliber. No evidence of retroperitoneal or mesenteric adenopathy. Uterus is enlarged and heterogeneous. Endometrial stripe appears prominent. Small amount of free flui d in the cul-de-sac. Subcutaneous tissues, abdominal wall, and muscular structures appear unremarkable. Osseous structures appear unremarkable. IMPRESSION: 1. Fluid-filled mildly distended loops of small bowel. Large amount of stool in the transverse colon which is redundant and in the upper mid left colon. Consider GI consultation. 2. Enlarged heterogeneous uterus with prominent endometrium. Free fluid in the cul-de-sac.
[2018-08-05] MEDS ORDERED: ISOVUE-370 76%-LOCM 1 ML ONE (11:18)
[2018-08-05] MEDS ORDERED: Azithromycin 250 MG TAB ONE (11:44)
[2018-08-05] MEDS ORDERED: cefTRIAXone\\ROCEPHIN 250 MG VIAL ONE (11:52)
[2018-08-05] MEDS ORDERED: Sodium Chloride 0.9% 100 ML ONE (11:52)
== END 2018-08-05 12:14 | disposition home or self-care (01) ==
LOC: ERS 08:30
DX: K52.9 Noninfective gastroenteritis and colitis, unspecified (principal); J06.9 Acute upper respiratory infection, unspecified
CPT/HCPCS: 36415; 74177; 80053; 81003; 81025; 83690; 85025; 87081; 87430; 96365; J0696; J3490; Q9966

== ENCOUNTER 2019-01-21 18:49 | Emergency (ER) | payer MEDICAID, SELFPAY ==
[2019-01-21] MEDS ORDERED: Ondansetron ODT 4 MG TAB ONE (19:22)
[2019-01-21] MEDS ORDERED: Ibuprofen 200 MG TAB ONE (20:28)
== END 2019-01-21 21:16 | disposition home or self-care (01) ==
LOC: ERS 18:49
DX: R11.2 Nausea with vomiting, unspecified (principal); R50.9 Fever, unspecified; R51 Headache
CPT/HCPCS: 87804; 99283; Q0162

== ENCOUNTER 2020-03-17 07:26 | Emergency (ER) | payer SELFPAY ==
[2020-03-17 15:28] LABS: SARS-CoV-2 MS2 Positive; SARS-CoV-2 N Gene Positive; SARS-CoV-2 S Gene Positive; SARS-CoV-2 by NAA DETECTED (NotDetected); SARS-CoV-2 orf1ab Positive
== END 2020-03-17 08:10 | disposition home or self-care (01) ==
LOC: ERS 07:26
DX: U07.1 COVID-19 (principal)
CPT/HCPCS: 87635; 87804; 99283; U0003

== ENCOUNTER 2020-05-31 09:14 | Emergency (ER) | payer MEDICAID, SELFPAY | END 2020-05-31 11:34 | disposition home or self-care (01) | LOC: ERS 09:14 | DX: O99.891 Other specified diseases and conditions complicating pregnancy (principal); R10.2 Pelvic and perineal pain; R11.0 Nausea; Z3A.08 8 weeks gestation of pregnancy | CPT/HCPCS: 36415; 76856; 81003; 84702; 86900; 86901; 87480; 87491; 87510; 87591; 87660; 93976 ==

== ENCOUNTER 2020-08-27 10:37 | Outpatient (CLI) | payer OTHER | END 2020-08-27 10:38 | disposition home or self-care (01) | LOC: BICULT 10:37 | PROVIDERS: ATTEND Family Medicine | DX: Z34.82 Encounter for supervision of other normal pregnancy, second trimester (principal); Z3A.21 21 weeks gestation of pregnancy | CPT/HCPCS: 76805 ==

== ENCOUNTER 2023-02-17 08:33 | Emergency (ER) | payer BC, OTHER ==
[2023-02-17] MEDS ORDERED: Acetaminophen 500 MG TAB ONE (09:13)
[2023-02-17 10:04] LABS: SARS-CoV-2 NAA Rapid Test Not Detected (NotDetected)
== END 2023-02-17 10:31 | disposition home or self-care (01) ==
LOC: ERS 08:33
DX: J10.1 Influenza due to other identified influenza virus with other respiratory manifestations (principal); Z20.822 Contact with and (suspected) exposure to COVID-19
CPT/HCPCS: 87081; 87430; 99284

== ENCOUNTER 2024-01-10 16:03 | Outpatient (CLI) | payer BC, MEDICAID | END 2024-01-10 16:04 | disposition home or self-care (01) | LOC: ULT 16:03 | PROVIDERS: ATTEND Family Medicine | DX: N63.31 Unspecified lump in axillary tail of the right breast (principal) | CPT/HCPCS: 76999 ==

== ENCOUNTER 2024-02-01 12:24 | Emergency (ER) | payer BC, MEDICAID ==
[2024-02-01 13:05] LABS: #Basophils Less than 0.03 10x3/uL (0.0-0.2); #Eosinophils Less than 0.03 10x3/uL (0.0-0.7); %Basophils 0.1 % (0.0-1.0); %Eosinophils 0.1 % (0.0-10.0); %Lymphocytes 11.4 % (21.0-51.0); %Monocytes 8.9 % (0.0-10.0); %Neutrophils 78.9 % (42.0-75.0); Hematocrit 36.2 % (36.0-47.0); Hemoglobin 11.4 g/dL (12.0-16.0); Mean Corpuscular HGB CONC 31.5 g/dL (32.0-36.0); Mean Corpuscular Hemoglobin 22.5 pg (27.0-31.0); Mean Corpuscular Volume 71.4 fL (78.0-98.0); Mean Platelet Volume 10.9 fL (7.4-10.4); Platelet Count 224 10x3/uL (130-400); Red Blood Cell (RBC) Count 5.07 mill/uL (4.20-5.40)
[2024-02-01 13:34] LABS: ALT (SGPT) 9 U/L (8-55); AST (SGOT) 17 U/L (5-34); Albumin 3.3 g/dL (3.5-5.0); Alkaline Phosphatase 51 U/L (40-110); Anion Gap 11 mmol/L (10-20); BUN (Urea Nitrogen) 7 mg/dL (7.0-18.7); Bilirubin, Total 0.3 mg/dL (0.2-1.2); Calc. Creatinine Clearance 0 mL/min (70-130); Calcium 8.5 mg/dL (7.8-10.44); Carbon Dioxide 21 mmol/L (22-29); Chloride 105 mmol/L (98-107); Estimated GFR 117; Globulin 3.9 g/dL (2.4-3.5); Glucose 88 mg/dL (70-105); Lipase 29 U/L (8-78); Potassium 3.5 mmol/L (3.5-5.1); Protein, Total 7.2 g/dL (6.0-8.3); Sodium 133 mmol/L (136-145)
[2024-02-01] MEDS ORDERED: Acetaminophen 500 MG TAB ONE (14:07)
[2024-02-01 14:35] LABS: Bacteria/HPF None Seen HPF (None Seen); Bilirubin Negative (Negative); Blood, Urine Negative (Negative); CAUTI Indications for Culture Dysuria,urgency,freq; Clarity Clear (Clear); Glucose, Urine (Dipstick) Normal (Negative); Ketone, Urine 80 mg/dL (Negative); Leukocyte 25 Leu/uL (Negative); Nitrite Negative (Negative); Protein, Urine (Dipstick) 20 mg/dL (Neg-Trace); RBC/HPF 0-3 HPF (0-3); Specific Gravity, Urine 1.022 (1.002-1.036); Urobilinogen 3 mg/dL (Less than 2); WBC/HPF 0-3 HPF (0-3); pH, Urine 6.5 (5.0-9.0)
[2024-02-01 14:43] LABS: Urine Culture Reflex No No
== END 2024-02-01 14:47 | disposition home or self-care (01) ==
LOC: ERS 12:24
DX: O99.891 Other specified diseases and conditions complicating pregnancy (principal); R10.9 Unspecified abdominal pain; Z3A.17 17 weeks gestation of pregnancy
CPT/HCPCS: 36415; 80053; 81001; 83690; 85025; 87428

== ENCOUNTER 2024-02-01 17:43 | Emergency (ER) | payer BC, MEDICAID | END 2024-02-01 20:31 | disposition home or self-care (01) | LOC: ERS 17:43 | DX: O98.512 Other viral diseases complicating pregnancy, second trimester (principal); B34.9 Viral infection, unspecified; Z3A.23 23 weeks gestation of pregnancy | CPT/HCPCS: 36415; 76815; 80053; 81001; 83690; 85025; 87081; 87428; 87430 ==

== ENCOUNTER 2024-12-15 23:17 | Emergency (ER) | payer OTHER ==
[2024-12-16 00:20] LABS: Bacteria/HPF None Seen HPF (None Seen); CAUTI Indications for Culture Dysuria,urgency,freq; Glucose, Urine (Dipstick) Normal (Negative); Leukocyte 500 Leu/uL (Negative); Protein, Urine (Dipstick) 100 mg/dL (Neg-Trace); RBC/HPF Greater than 50 HPF (0-3); Specific Gravity, Urine 1.016 (1.002-1.036); WBC/HPF Greater than 50 HPF (0-3)
[2024-12-16 00:24] LABS: Urine Culture Reflex Yes Yes
[2024-12-16 00:25] LABS: Pregnancy Test - Urine (BHCG) Negative (Negative); Pregu Control Background? CLEAR/WHITE (CLR/WHITE); Pregu Control Bar Appear? YES (CONTROL BAR)
[2024-12-16] MEDS ORDERED: Cephalexin 250 MG CAP ONE (01:14)
== END 2024-12-16 01:22 | disposition home or self-care (01) ==
LOC: ERS 23:17
DX: N39.0 Urinary tract infection, site not specified (principal)
CPT/HCPCS: 81001; 81025; 87086; 87186; 99283